=== PATIENT | female | born 1975 | race Caucasian/White ===

== ENCOUNTER 2016-10-24 07:38 | Emergency (ER) | payer BC ==
[2016-10-24] MEDS ORDERED: VYVANSE20 M1 PO (08:07)
[2016-10-24 08:25] LABS: PREGNANCY-SERUM NEGATIVE (NEGATIVE)
[2016-10-24 08:27] LABS: CREATININE 1.02 mg/dl (0.50-1.10); eGFR VALUE FOR BLACK 80 mL/Min
[2016-10-24] MEDS ORDERED: NORCO 5-325 TA1 EACH PO (10:09)
[2016-10-24] MEDS ORDERED: ZOFRAN ODT4 MG PO (10:09)
[2016-10-24 10:53] LABS: URINE BILIRUBIN NEGATIVE (NEG); URINE BLOOD LARGE (NEG); URINE GLUCOSE (UA) SMALL (NEG); URINE KETONE MODERATE (NEG); URINE LEUKOCYTE ESTERASE NEGATIVE (NEG); URINE NITRITE NEGATIVE (NEG); URINE PROTEIN NEGATIVE (NEG)
[2016-10-24 10:54] LABS: URINE APPEARANCE CLEAR; URINE COLOR YELLOW
[2016-10-24 11:00] LABS: URINE AMORPHOUS 1+; URINE BACTERIA 1+; URINE MUCUS 1+; URINE RBC 18-20 /[HPF] (0-5); URINE WBC RARE /[HPF] (0-5)
== END 2016-10-24 11:16 ==
LOC: EDMED 07:38
PROVIDERS: Family Medicine
DX: N13.2 Hydronephrosis with renal and ureteral calculous obstruction (principal); N21.0 Calculus in bladder; Z87.442 Personal history of urinary calculi
CPT/HCPCS: J1885; J2270; J2405; J7030